=== PATIENT | female | born 1995 | race Caucasian/White ===

== ENCOUNTER 2016-05-20 18:16 | Emergency (ER) | payer OTHER | END 2016-05-20 18:56 | disposition home or self-care (01) | LOC: ER 18:16 | DX: J06.9 Acute upper respiratory infection, unspecified (principal); J32.9 Chronic sinusitis, unspecified; R05 Cough; Z91.040 Latex allergy status | CPT/HCPCS: 99282 ==

== ENCOUNTER 2016-07-06 14:43 | Emergency (ER) | payer OTHER | END 2016-07-06 15:14 | disposition home or self-care (01) | LOC: ER 14:43 | DX: J06.9 Acute upper respiratory infection, unspecified (principal); J32.9 Chronic sinusitis, unspecified; R05 Cough; R09.81 Nasal congestion | CPT/HCPCS: 99282 ==